=== PATIENT | female | born 1975 | race African-American/Black ===

== ENCOUNTER 2022-02-23 13:00 | Emergency (ER) | payer MEDICAID ==
[~2022-02-23] VITALS: Ht 157.5 cm; Wt 114.0 kg
[2022-02-23] MEDS ORDERED: LIDOCAINE 5% PATCH TOP SCH (14:00)
[2022-02-23] MEDS ORDERED: HYDROCODONE/ACETAMINOPHEN 5/325MG TABLET PO ONE (14:00)
[2022-02-23] MEDS ORDERED: GABAPENTIN 300MG CAPSULE PO ONE (14:00)
[2022-02-23] MEDS ORDERED: HYDROCODONE/ACETAMINOPHEN 5/325MG TABLET PO NR (15:30)
[2022-02-23] MEDS ORDERED: LIDOCAINE 5% PATCH TOP NR (15:30)
[2022-02-23 16:10] LABS: CLARITY URINE CLEAR (CLEAR); COLOR URINE YELLOW (YELLOW); KETONES URINE NEGATIVE (NEGATIVE); LEUKOCYTE ESTERASE URINE NEGATIVE (NEGATIVE); NITRITE URINE NEGATIVE (NEGATIVE); OCCULT BLOOD URINE NEGATIVE (NEGATIVE); PH URINE 7.5 (4.5-8.0); PROTEIN URINE NEGATIVE (NEGATIVE); SPECIFIC GRAVITY URINE 1.019 (1.005-1.030)
[2022-02-23] MEDS ORDERED: KETOROLAC 60MG/2ML VIAL IM ONE (17:15)
[2022-02-23] MEDS ORDERED: HYDR-4001 MT (18:25)
[2022-02-23] MEDS ORDERED: LIDO1ADH5 TP (18:25)
[2022-02-23] MEDS ORDERED: GABA-532 MT (18:25)
[2022-02-23] MEDS ORDERED: NAPR-681 MT (18:25)
[2022-02-23 19:19] VITALS: BP 143/95
== END 2022-02-23 19:19 | disposition home or self-care (01) ==
LOC: ER 13:07
DX: M54.50 Low back pain, unspecified (principal); Z90.710 Acquired absence of both cervix and uterus; Z88.0 Allergy status to penicillin
CPT/HCPCS: 72100; 81003; 81025; 96372; 99284; J1885